=== PATIENT | male | born 1995 | race Caucasian/White ===

== ENCOUNTER 2020-02-23 10:30 | Outpatient (REF) | payer SELFPAY ==
--- NOTE | 2020-02-23 11:05 | XR_ITS ---
EXAMINATION: XR CLAVICLE, RIGHT CLINICAL INFORMATION: Unspecified injury of shoulder and upper arm COMPARISON: None TECHNIQUE: Two views of the right clavicle. FINDINGS: Comminuted mid to distal right clavicle fracture is seen with inferior displacement of the major distal fracture fragment by greater than 2 shaft widths. Mild angulation and soft tissue swelling identified. No manifestations of healing. The acromioclavicular alignment is maintained. XR/XR clavicle RT IMPRESSION: Comminuted mid to distal right clavicle fracture with displacement as above.
== END 2020-02-23 10:31 | disposition home or self-care (01) ==
LOC: HO.HOSX 10:30
PROVIDERS: Visit Provider Orthopaedic Surgery
DX: S49.91XA Unspecified injury of right shoulder and upper arm, initial encounter (principal)
CPT/HCPCS: 73000; 99202

== ENCOUNTER 2020-02-25 06:58 | Day surgery (SDC) | payer SELFPAY ==
--- NOTE | 2020-02-24 09:17 | HO.ANESPROP2 ---
Documented by User: Regla Jay 02/24/20 09:18 HPI - Anesthesia Eval Consult details Narrative: 24yo M for Clavicle ORIF PMFSH Family History Family History Mother No problems noted. Father No problems noted. Surgical History Surgical History [place] teeth removed Social History Social History Alcohol intake: current Smoking Status: Never smoker Use of substances other than those prescribed or required for medical reasons: Yes Advance Directives: No Advance Directives Information Provided: No Recently lost weight without trying: No Current occupational status: employed Current occupation: construction- right handed Meds Allergies Allergy/AdvReac Type Severity Reaction Status Date / Time No Known Allergies Allergy Verified 02/23/20 10:37 [No Known Allergies*] Home Medications Medication Instructions Recorded Confirmed Type oxycodone-acetaminophen 5 mg-325 1 tab PO Q4-6H PRN 02/23/20 History mg tablet Exam Exam Date and Time: February 24, 2020916 Assessment and Plan Assessment Anesthesia Assessment: Chart Reviewed Documented by User: Jasper Coats MD 02/25/20 09:59 PMFSH Family History Family History Mother No problems noted. Father No problems noted. Surgical History Surgical History [place] teeth removed Social History Social History Alcohol intake: current Smoking Status: Never smoker Use of substances other than those prescribed or required for medical reasons: Yes Advance Directives: No Advance Directives Information Provided: No Recently lost weight without trying: No Current occupational status: employed Current occupation: construction- right handed Meds Allergies Allergy/AdvReac Type Severity Reaction Status Date / Time No Known Allergies Allergy Verified 02/23/20 10:37 [No Known Allergies*] Home Medications Medication Instructions Recorded Confirmed Type oxycodone-acetaminophen 5 mg-325 1 tab PO Q4-6H PRN 02/23/20 History mg tablet Exam Airway TM Dist: >3cm Neck ROM: Full Loose/Missing/Broken Teeth: No Heart: RRR Lungs: NL Other: AO Assessment and Plan Assessment Anesthesia Assessment: Anesthesia Plan Discussed Final Anesthetic Review NPO: Yes ASA Class: I Final Preanesthetic Review: No Changes in Pt Med Stat, Meds/Allgs Chart Reviewed, Consent Obtained/Reviewed and Anes Risks/Benef Reviewed Patient Risk: Low Procedure Risk: Intermediate Anesthetic Plan Anesthetic Plan: GA Disposition: Standard PACU
[2020-02-25] VITALS (7 sets, daily range): BP systolic 128–141; BP diastolic 77–98; PULSE 72–112; RESP 14–20; TEMP 36.6–36.9; O2SAT 96–99; BMI 25.0
--- NOTE | 2020-02-25 07:20 | FL_ITS ---
EXAMINATION: XR FLUOROSCOPY WITH IMAGES CLINICAL INFORMATION: Fracture right clavicle. COMPARISON: 02/23/2020 right clavicle. TECHNIQUE: Fluoroscopy performed by Dr. Ralph Grajeda. Fluoroscopy time: 0.1 minutes DAP: 0.0317 mGycm2 Images: 3 FINDINGS: A comminuted right midclavicular fracture has been stabilized with a superior metallic plate and screws with fracture fragments in alignment. No soft tissue abnormality seen. FL/FL guidance in OR IMPRESSION: Stabilized right mid clavicle fracture with superior metallic plate and screws. Fluoroscopy was provided to Dr. Ralph Grajeda during the surgery.
[2020-02-25] MEDS: Lactated Ringers 1,000 ML 100 ML IVCONT (07:40)
--- NOTE | 2020-02-25 08:38 | MHC.SHP ---
Pre-Procedural Eval Section A The patient is an INPATIENT: No Changes since office visit: Yes Patient answered all questions; No Cold of Flu in the past 2 weeks, No New Medical Problems and No Changes in Medication The History & Physical has been completed within 30 days and I have reviewed it.: Yes Section B Chief Complaint: fx right clavicle Allergies: Allergies Allergy/AdvReac Type Severity Reaction Status Date / Time No Known Allergies Allergy Verified 02/23/20 10:37 [No Known Allergies*] Plan I have reviewed the history and physical and performed a pertinent physical examination on my patient. No changes have occurred unless specified.
[2020-02-25] MEDS: ceFAZolin Sodium/Dextrose,Iso 2 GM/50 ML PIGGYBACK IV (08:45)
--- NOTE | 2020-02-25 10:33 | PM.OP ---
Brief Operative Note Date of Service: 02/25/20 Pre-op diagnosis: right clavicle fracture Post-op diagnosis: same Procedure: ORIF right clavicle Implants: alf Surgeon: Taras Rosas MD Anesthesia: GETA and local Estimated blood loss (mL): 20 Tourniquet time (min): 0 IV fluids (mL): 1,000 Urine output (mL): 0 Pathology: none sent Condition: stable Disposition: PACU
--- NOTE | 2020-02-25 11:13 | OP_ITS ---
SURGEON: Taras Rosas MD INDICATIONS: This is a 24-year-old with a markedly displaced right clavicle fracture after snowboarding injury, consented to undergo ORIF. PREOPERATIVE DIAGNOSIS: Right clavicle fracture. POSTOPERATIVE DIAGNOSIS: Right clavicle fracture. PROCEDURE PERFORMED: ORIF, right clavicle. ESTIMATED BLOOD LOSS: 20 mL. COMPLICATIONS: None. ANESTHESIA: General and local. ASSISTANTS: SPECIMENS: FLUIDS: 1 L. DESCRIPTION OF PROCEDURE: The patient was brought to the operating room, placed in the beach chair position. All bony prominences were well padded, and he was prepped and draped in standard sterile fashion. Time-out was called to identify proper site, proper procedure, proper surgeon. IV antibiotics per weight was administered. I began by making a linear incision over the anterior superior aspect of the clavicle. Fine dissection was taken down through the clavicular fascia and strap musculature to the displaced clavicle fracture. I irrigated and removed callus. Used a combination of lobster claw to reduce the fracture. There was a butterfly fragment anteriorly. I placed 2 lag screws A to P through the butterfly fragment to reduce the fracture. I had good reduction with the lag screws and I placed an 8-hole clavicle plate, and using standard AO technique drilled my screws and placed nonlocking screws except for the ends, where I placed two locking screws both medially and laterally. I used biplanar fluoroscopy to confirm that the plate was in appropriate position and on the bone and the screws were not long. I was happy with all the projections and visual inspection revealed a reduced fracture with a well aligned plate. I then irrigated copiously, closed the strap musculature. Then, the subcutaneous with absorbable suture and skin with skin glue and Steri-Strips. The patient was placed into a sterile dressing. Additional 0.25% Marcaine with epinephrine was injected around the incision site and the patient was extubated and brought to the recovery room in stable condition. There were no known complications. CONING MACHINE OPERATOR: None. GRAFT OR IMPLANTS: Marie. MD LEELEE Steinberg/OLINDA / [id number]
[2020-02-25] MEDS: ondansetron HCL 4 MG/2 ML VIAL IVPUSH (11:38)
--- NOTE | 2020-02-25 12:15 | HO.POSTANES ---
Post Anesthesia Evaluation Post Anesthesia Evaluation Vital Signs: Vital Signs Temp Pulse Resp BP Pulse Ox 02/25/20 11:10 98.0 F 82 16 131/91 H 98 02/25/20 10:55 72 14 135/89 96 02/25/20 10:40 89 20 141/98 H 97 02/25/20 10:35 94 16 130/77 99 02/25/20 10:30 103 H 14 128/92 H 99 02/25/20 10:25 97.8 F 112 H 20 137/86 99 02/25/20 07:19 98.4 F 80 16 132/81 98 Anesthesia: General Mental Status: Awake Pain Control: Satisfactory Nausea/Vomiting: None Hydration: Adequate Anesthesia-Related Issues: No Anes. Related Issues
--- NOTE | 2020-02-25 12:42 | PC.NURSE ---
sling on dressing cdi per report, pt sl nauseaous for discharge sts I just want to go home and go to bed
== END 2020-02-25 12:13 | disposition home or self-care (01) ==
PROVIDERS: Visit Provider Orthopaedic Surgery
PROC: (CPT 23515; principal; 2020-02-25 08:30)
DX: S42.021A Displaced fracture of shaft of right clavicle, initial encounter for closed fracture (principal); W00.0XXA Fall on same level due to ice and snow, initial encounter; Y93.23 Activity, snow (alpine) (downhill) skiing, snowboarding, sledding, tobogganing and snow tubing; Y92.9 Unspecified place or not applicable; Y99.8 Other external cause status; F17.200 Nicotine dependence, unspecified, uncomplicated
CPT/HCPCS: 23515; C1713; J0690; J1170; J2250; J2405; J3010

== ENCOUNTER → 2020-03-05 09:03 | Outpatient (BNVA) | payer SELFPAY | PROVIDERS: Visit Provider Physician Assistant | DX: S42.001D Fracture of unspecified part of right clavicle, subsequent encounter for fracture with routine healing (principal) | CPT/HCPCS: 99212 ==

== ENCOUNTER 2020-04-08 08:54 | Outpatient (REF) | payer SELFPAY ==
--- NOTE | ~2020-04-08 | XR_ITS ---
EXAMINATION: XR CLAVICLE, RIGHT CLINICAL INFORMATION: Fracture. COMPARISON: Right clavicle radiographs dated 02/23/2020 TECHNIQUE: PA and tangential views of the right clavicle. FINDINGS: Superior stabilization plate with associated fixation screws across the previously seen comminuted and displaced clavicular fracture. The fracture components are in near-anatomic alignment. No acute hardware fracture. No perihardware lucency to suggest loosening or infection. No abnormal soft tissue calcification. XR/XR clavicle RT IMPRESSION: Right clavicular ORIF without evidence of hardware complication. Previously seen comminuted and displaced clavicular fracture now appears in near-anatomic alignment.
== END 2020-04-08 08:55 | disposition home or self-care (01) ==
LOC: HO.HOSX 08:54
PROVIDERS: Visit Provider Orthopaedic Surgery
DX: S42.001D Fracture of unspecified part of right clavicle, subsequent encounter for fracture with routine healing (principal)
CPT/HCPCS: 73000; 99212

== ENCOUNTER 2020-05-20 08:09 | Outpatient (REF) | payer SELFPAY ==
--- NOTE | ~2020-05-20 | XR_ITS ---
EXAMINATION: XR CLAVICLE, RIGHT CLINICAL INFORMATION: Right clavicle fracture. COMPARISON: 04/08/2020 and 02/23/2020. TECHNIQUE: 2 views of the right clavicle. FINDINGS: Plate and side screws are seen transfixing a mid to distal right clavicle fracture with good alignment. There appears be some degree of bony union present. Acromioclavicular joint appears unremarkable. No widening of the coracoclavicular space is seen. Glenohumeral joint appears unremarkable. XR/XR clavicle RT IMPRESSION: Satisfactory appearance of right clavicle with hardware intact.
== END 2020-05-20 08:10 | disposition home or self-care (01) ==
LOC: HO.HOSX 08:09
PROVIDERS: Visit Provider Orthopaedic Surgery
DX: S42.001D Fracture of unspecified part of right clavicle, subsequent encounter for fracture with routine healing (principal)
CPT/HCPCS: 73000; 99212